=== PATIENT | female | born 2000 | race African-American/Black ===

== ENCOUNTER 2023-03-12 13:01 | Observation (INO) | payer MEDICAID ==
[~2023-03-12] VITALS: Ht 157.5 cm; Wt 99.8 kg
[2023-03-12] MEDS ORDERED: ONDANSETRON HCL 4MG/2ML INJ IV PRN ×2 (13:45→14:30)
[2023-03-12] MEDS: LACTATED RINGERS 1,000 ML IV SCH ×2 (15:45→17:25)
[2023-03-12 16:41] LABS: BASOPHILS % 0.3 % (0.0-2.0); CHLORIDE 109 mEq/L (98-107); EOSINOPHILS % 0.5 % (0.0-5.0); HEMATOCRIT. 37.4 % (36.0-48.0); HEMOGLOBIN. 12.7 g/dL (12.0-16.0); LYMPHOCYTES % 17.2 % (20.0-50.0); MEAN CORPUSCULAR HEMOGLOBIN 31.6 pg (28.0-32.0); MEAN CORPUSCULAR VOLUME 92.9 fL (81.0-99.0); MEAN PLATELET VOLUME 9.9 fl (7.4-10.4); MONOCYTES % 9.7 % (2.0-8.0); NEUTROPHILS % 72.3 % (40.0-76.0); PLATELET 284 x1000/uL (130-400); RED BLOOD CELL COUNT 4.03 mill/uL (4.2-5.4); RED CELL DISTRIBUTION WIDTH 13.2 % (11.6-14.6)
[2023-03-12 17:13] LABS: CLARITY URINE CLEAR (CLEAR); COLOR URINE YELLOW (YELLOW); KETONES URINE NEGATIVE (NEGATIVE); LEUKOCYTE ESTERASE URINE 2+ (NEGATIVE); NITRITE URINE NEGATIVE (NEGATIVE); OCCULT BLOOD URINE NEGATIVE (NEGATIVE); PH URINE 7.5 (4.5-8.0); PROTEIN URINE NEGATIVE (NEGATIVE)
[2023-03-12] MEDS ORDERED: LEVE1000 MT (19:09)
[2023-03-12] MEDS ORDERED: PNV1TABL50 MT (19:11)
== END 2023-03-12 19:52 | disposition home or self-care (01) ==
LOC: 8 EST LDRP 13:01
PROVIDERS: ADMIT Obstetrics & Gynecology; ATTEND Obstetrics & Gynecology
DX: O99.891 Other specified diseases and conditions complicating pregnancy (principal); M54.50 Low back pain, unspecified; R10.9 Unspecified abdominal pain; Z3A.36 36 weeks gestation of pregnancy
CPT/HCPCS: 36415; 59025; 76805; 76818; 80053; 81003; 85025; 96361; 96374; G0378; J2405; 96360; 99281; G0379

== ENCOUNTER 2023-03-23 19:21 | Inpatient (IN) | payer MEDICAID ==
[~2023-03-23] VITALS: Ht 157.5 cm; Wt 100.8 kg
[~2023-03-23 19:21] MED LIST: LEVE1000 MT; PNV1TABL50 MT
[2023-03-23] MEDS ORDERED: METHYLERGONOVINE MALEATE 0.2 MG/ML IM PRN (20:00)
[2023-03-23] MEDS ORDERED: MISOPROSTOL 100MCG TABLET VG SCH (20:00)
[2023-03-23] MEDS ORDERED: CARBOPROST TROMETHAMINE 250 MCG/ML AMPUL IM PRN (20:00)
[2023-03-23] MEDS ORDERED: NALOXONE HCL 0.4 MG/ML 1ML VIAL IM PRN (20:00)
[2023-03-23] MEDS ORDERED: LIDOCAINE HCL 1% 20ML VIAL (Pyxis) INJ INFIL SCH (20:00)
[2023-03-23] MEDS ORDERED: LORAZEPAM 2MG/ML CPJ IV NR (20:15)
[2023-03-23 20:45] LABS: BASOPHILS % 0.4 % (0.0-2.0); HEMATOCRIT. 38.1 % (36.0-48.0); HEMOGLOBIN. 12.8 g/dL (12.0-16.0); LYMPHOCYTES % 7.3 % (20.0-50.0); MEAN CORPUSCULAR HEMOGLOBIN 31.4 pg (28.0-32.0); MEAN CORPUSCULAR VOLUME 93.7 fL (81.0-99.0); MEAN PLATELET VOLUME 9.5 fl (7.4-10.4); MONOCYTES % 4.9 % (2.0-8.0); NEUTROPHILS % 87.4 % (40.0-76.0); PLATELET 349 x1000/uL (130-400); RED BLOOD CELL COUNT 4.07 mill/uL (4.2-5.4); RED CELL DISTRIBUTION WIDTH 13.4 % (11.6-14.6)
[2023-03-23] MEDS: LACTATED RINGERS 1,000 ML IV SCH (21:16)
[2023-03-23] MEDS: LEVETIRACETAM 1,000 MG in SODIUM CHLORIDE 0.9% 100 ML IV SCH (21:17)
[2023-03-23 21:51] LABS: CHLORIDE 109 mEq/L (98-107)
[2023-03-23 22:00] LABS: CREATINE KINASE 172 IU/L (26-192)
[2023-03-23 22:25] LABS: CLARITY URINE CLEAR (CLEAR); COLOR URINE DARK YELLOW (YELLOW); KETONES URINE 1+ (NEGATIVE); LEUKOCYTE ESTERASE URINE TRACE (NEGATIVE); NITRITE URINE NEGATIVE (NEGATIVE); OCCULT BLOOD URINE 1+ (NEGATIVE); PH URINE 5.5 (4.5-8.0); PROTEIN URINE 1+ (NEGATIVE); SPECIFIC GRAVITY URINE 1.014 (1.005-1.030)
[2023-03-23 22:38] LABS: *AMPHETAMINES SCREEN URINE NEGATIVE (NEGATIVE); *BARBITURATES SCREEN URINE NEGATIVE (NEGATIVE); *BENZODIAZEPINES SCREEN URINE NEGATIVE (NEGATIVE); *COCAINE SCREEN URINE NEGATIVE (NEGATIVE); METHADONE URINE SCREEN NEGATIVE (NEGATIVE); OPIATES URINE SCREEN NEGATIVE (NEGATIVE); PHENCYCLIDINE URINE SCREEN NEGATIVE (NEGATIVE)
[2023-03-23 22:42] LABS: CANNABINOID URINE SCREEN PRESUMTIVE POSITIVE (NEGATIVE)
[2023-03-24] MEDS: LACTATED RINGERS 1,000 ML IV SCH ×2 (00:48→10:45)
[2023-03-24] MEDS: LEVETIRACETAM 1,000 MG in SODIUM CHLORIDE 0.9% 100 ML IV SCH (09:01)
[2023-03-24] MEDS: LEVETIRACETAM 500MG TABLET PO SCH (21:02)
[2023-03-25] MEDS: LEVETIRACETAM 500MG TABLET PO SCH (08:56)
== END 2023-03-25 19:20 | disposition home or self-care (01) | DRG 566 ==
LOC: ER 19:21 → 8 EST LDRP 19:31 → OBSVTOIN 19:31 → 8 EST LDRP 20:35
PROVIDERS: ADMIT Obstetrics & Gynecology; ATTEND Obstetrics & Gynecology
DX: O99.353 Diseases of the nervous system complicating pregnancy, third trimester (principal); G40.909 Epilepsy, unspecified, not intractable, without status epilepticus; Z3A.34 34 weeks gestation of pregnancy; O36.5930 Maternal care for other known or suspected poor fetal growth, third trimester, not applicable or unspecified
CPT/HCPCS: 36415; 76805; 76818; 80048; 80305; 80349; 81003; 82542; 82550; 82962; 85025; 86592; 86703; 86850; 86900; 87340; 99281; 99285; G0378; J1953; J2060; J7050; J7120

== ENCOUNTER 2023-08-21 14:48 | Emergency (ER) | payer MEDICAID ==
[~2023-08-21] VITALS: Ht 170.2 cm; Wt 127.0 kg
[2023-08-21 14:52] VITALS: O2SAT 99
[2023-08-21] MEDS ORDERED: SODIUM CHLORIDE 0.9% 1,000 ML IV ONE (15:15)
[2023-08-21 15:27] LABS: BASOPHILS % 0.1 % (0.0-2.0); EOSINOPHILS % 0.3 % (0.0-5.0); HEMATOCRIT. 37.9 % (36.0-48.0); HEMOGLOBIN. 12.1 g/dL (12.0-16.0); LYMPHOCYTES % 8.6 % (20.0-50.0); MEAN CORPUSCULAR HGB CONC 31.9 g/dL (31.0-37.0); MEAN CORPUSCULAR VOLUME 84.7 fL (81.0-99.0); MEAN PLATELET VOLUME 7.8 fl (7.4-10.4); MONOCYTES % 6.2 % (2.0-8.0); NEUTROPHILS % 84.8 % (40.0-76.0); PLATELET 516 x1000/uL (130-400); RED BLOOD CELL COUNT 4.47 mill/uL (4.2-5.4); RED CELL DISTRIBUTION WIDTH 14.6 % (11.6-14.6); WHITE BLOOD COUNT 12.3 x1000/uL (4.5-11.0)
[2023-08-21 15:35] LABS: INDEX HEMOLYSI 1 (1-3); INDEX ICTERIC 1 (1-4); INDEX LIPEMIC 1 (1-3)
[2023-08-21 15:51] LABS: ALANINE AMINOTRANSFERASE 16 IU/L (13-61); ASPARTATE AMINOTRANSFERASE 15 IU/L (15-37); BILIRUBIN TOTAL 0.5 mg/dL (0.1-1.0); CALCIUM 8.2 mg/dL (8.5-10.1); CARBON DIOXIDE 23 mEq/L (21-32); CREATINE KINASE 285 IU/L (26-192); CREATININE 0.9 mg/dL (0.6-1.3); GLUCOSE 122 mg/dL (70-105); PROTEIN TOTAL 7.5 g/dL (6.0-8.3); UREA NITROGEN BLOOD 5 mg/dL (7-21)
[2023-08-21 15:55] LABS: HCG SCREEN NEGATIVE
[2023-08-21 15:58] LABS: CHLORIDE 109 mEq/L (98-107); POTASSIUM 3.9 mEq/L (3.5-5.1); SODIUM 139 mEq/L (136-145)
[2023-08-21] MEDS ORDERED: LEVETIRACETAM 4,500 MG in SODIUM CHLORIDE 0.9% 100 ML IV NR (16:00)
[2023-08-21 19:18] VITALS: TEMP 98
[2023-08-21 21:38] VITALS: BP 135/67; PULSE 89; RESP 21
== END 2023-08-21 21:47 | disposition left against medical advice (07) ==
LOC: ER 14:48 → CANBEDREQ 19:35 → ER 21:47
DX: G40.901 Epilepsy, unspecified, not intractable, with status epilepticus (principal)
CPT/HCPCS: 80053; 82550; 84703; 85025; 36415; 93005; 96365; 99284; J1953; J7050; J7030; Z7610 ×4; A4315

== ENCOUNTER 2024-02-08 21:39 | Emergency (ER) | payer MEDICAID ==
[~2024-02-08] VITALS: Ht 160 cm; Wt 109.0 kg
[2024-02-08 22:20] VITALS: BP 140/96; PULSE 84; RESP 18; TEMP 98; O2SAT 100
[2024-02-09] MEDS ORDERED: OLOP5DRO25 EACHEYE (00:45)
[2024-02-09] MEDS ORDERED: CETI10CA2 MT (00:45)
[2024-02-09] MEDS ORDERED: CLOB15CR4 TP (00:45)
[2024-02-09] MEDS: TETRACAINE 0.5% OPHTH DROPS 4ML EACHEYE ONE (00:51)
[2024-02-09] MEDS: FLUORESCEIN SODIUM 1MG/STRIP EACHEYE ONE (00:51)
== END 2024-02-09 01:03 | disposition home or self-care (01) ==
LOC: ER 22:03
DX: H10.13 Acute atopic conjunctivitis, bilateral (principal); L30.9 Dermatitis, unspecified; F19.90 Other psychoactive substance use, unspecified, uncomplicated; Z91.018 Allergy to other foods
CPT/HCPCS: 99283

== ENCOUNTER 2024-09-16 09:54 | Inpatient (IN) | payer MEDICAID ==
[~2024-09-16] VITALS: Ht 170.2 cm; Wt 86.6 kg
[~2024-09-16 09:54] MED LIST changes: +CETI10CA2 MT; +CLOB15CR4 TP; +OLOP5DRO25 EACHEYE
[2024-09-16 10:06] VITALS: O2SAT 100
[2024-09-16] MEDS: LORAZEPAM 2MG/ML INJ ONE (10:28)
[2024-09-16 10:51] LABS: HEMATOCRIT. 33.1 % (36.0-48.0); HEMOGLOBIN. 10.1 g/dL (12.0-16.0); MEAN CORPUSCULAR HEMOGLOBIN 26.4 pg (28.0-32.0); MEAN CORPUSCULAR HGB CONC 30.7 g/dL (31.0-37.0); MEAN CORPUSCULAR VOLUME 86.3 fL (81.0-99.0); MEAN PLATELET VOLUME 8.1 fl (7.4-10.4); PLATELET 355 x1000/uL (130-400); RED BLOOD CELL COUNT 3.84 mill/uL (4.2-5.4); RED CELL DISTRIBUTION WIDTH 18.9 % (11.6-14.6); WHITE BLOOD COUNT 9.1 x1000/uL (4.5-11.0)
[2024-09-16 10:59] LABS: INR 0.9; PROTHROMBIN TIME 10.5 sec (9.6-11.0)
[2024-09-16 11:00] LABS: CHLORIDE 109 mEq/L (98-107); POTASSIUM 4.3 mEq/L (3.5-5.1); SODIUM 134 mEq/L (136-145)
[2024-09-16 11:01] LABS: CALCIUM 8.8 mg/dL (8.7-10.4); CARBON DIOXIDE 14 mEq/L (21-32)
[2024-09-16 11:05] LABS: DIFFERENTIAL COMMENT 1
[2024-09-16 11:06] LABS: CREATININE 0.7 mg/dL (0.6-1.0); GLUCOSE 87 mg/dL (70-105); TROPONIN I HIGH SENSITIVITY 4 ng/L (3.0-34)
[2024-09-16 11:08] LABS: ALANINE AMINOTRANSFERASE 15 IU/L (10-49); ALBUMIN 3.8 g/dL (3.2-4.8); ASPARTATE AMINOTRANSFERASE 20 IU/L (<34); BILIRUBIN TOTAL 0.3 mg/dL (0.1-1.0); PROTEIN TOTAL 7.3 g/dL (6.0-8.3)
[2024-09-16 11:09] LABS: THYROID STIMULATING HORMONE 1.62 uIU/mL (0.55-4.78)
[2024-09-16 11:14] LABS: BILIRUBIN DIRECT < 0.1 mg/dL (<=3.0); UREA NITROGEN BLOOD < 5 mg/dL (9-23)
[2024-09-16 11:15] LABS: ETHANOL BLOOD < 10 mg/dL (<10)
[2024-09-16 11:47] LABS: HCG SCREEN POSITIVE
[2024-09-16] MEDS: LORAZEPAM 2MG/ML INJ IV ONE (12:55)
[2024-09-16 13:31] LABS: PLATELET ESTIMATE NORMAL
[2024-09-16 15:00] VITALS: BP 132/83; PULSE 95; RESP 18; TEMP 36.61404; O2SAT 98
[2024-09-16] MEDS ORDERED: ZOLPIDEM TARTRATE 5MG TABLET PO PRN (15:15)
[2024-09-16] MEDS ORDERED: CLONIDINE 0.1MG TABLET PO PRN (15:15)
[2024-09-16] MEDS ORDERED: MAGNESIUM/ALUMINUM HYDROXIDE/SIMETHICONE 30ML UDC PO PRN (15:15)
[2024-09-16] MEDS ORDERED: ONDANSETRON HCL 4MG/2ML INJ IV PRN (15:15)
[2024-09-16] MEDS ORDERED: DOCUSATE SODIUM 100MG CAPSULE PO PRN (15:15)
[2024-09-16] MEDS ORDERED: IPRATROPIUM/ALBUTEROL 0.5-3(2.5)MG/3ML NEB NEB PRN (15:15)
[2024-09-16] MEDS ORDERED: GUAIFENESIN 200MG/10ML SUGAR FREE UDC PO PRN (15:15)
[2024-09-16] MEDS ORDERED: NITROGLYCERIN 0.4MG TABLET SL SL PRN (15:15)
[2024-09-16] MEDS ORDERED: KETOROLAC 15MG/ML VIAL IV PRN (15:15)
[2024-09-16] MEDS ORDERED: ACETAMINOPHEN 325MG TABLET PO PRN ×2 (15:15)
[2024-09-16 15:30] VITALS: BP 132/83; PULSE 95; RESP 18; TEMP 36.6404
[2024-09-16] MEDS: LEVETIRACETAM 500MG PREMIX 100 ML IV SCH (16:05)
[2024-09-16 18:12] LABS: IRON 192 ug/dL (50-170)
[2024-09-16 18:15] LABS: TOTAL IRON BINDING CAPACITY 490 ug/dl (250-425)
[2024-09-16 18:17] LABS: FOLIC ACID (FOLATE) SERUM 10.71 ng/mL (>5.38); VITAMIN B12 SERUM 247 pg/mL (211-911)
[2024-09-16 18:18] LABS: T4 FREE 1.01 ng/dL (0.89-1.76)
[2024-09-16 20:00] VITALS: BP 140/81; PULSE 81; RESP 19; TEMP 36.00288; O2SAT 97
[2024-09-16] MEDS ORDERED: LEVETIRACETAM 500MG PREMIX 100 ML IV SCH (21:00)
[2024-09-16] MEDS: FAMOTIDINE 20MG TABLET PO SCH (21:15)
[2024-09-17] VITALS: BP 133/88; PULSE 92; RESP 18; TEMP 36.44736; O2SAT 98
[2024-09-17 04:00] VITALS: BP 121/64; PULSE 94; RESP 20; TEMP 36.33624; O2SAT 96
[2024-09-17 08:00] VITALS: BP 134/82; PULSE 89; RESP 18; TEMP 36.50292; O2SAT 99
== END 2024-09-17 10:44 | disposition left against medical advice (07) | DRG 566 ==
LOC: ER 10:01 → 8WST 12:34 → EDBEDREQ 12:37 → EDBEDREQTM 12:37
PROVIDERS: ADMIT Internal Medicine; ATTEND Internal Medicine
DX: O99.352 Diseases of the nervous system complicating pregnancy, second trimester (principal); E87.1 Hypo-osmolality and hyponatremia; O99.282 Endocrine, nutritional and metabolic diseases complicating pregnancy, second trimester; G40.909 Epilepsy, unspecified, not intractable, without status epilepticus; Z53.29 Procedure and treatment not carried out because of patient's decision for other reasons; Z79.899 Other long term (current) drug therapy; Z3A.15 15 weeks gestation of pregnancy
CPT/HCPCS: 36415; 71045; 76805; 80048; 80076; 80320; 82607; 82746; 82962; 83036; 83540; 83550; 84439; 84443; 84484; 84702; 84703; 85025; 93005; 93970; 99291; 99292; C1893; J1953; J2060; G0480

== ENCOUNTER 2025-05-14 21:09 | Emergency (ER) | payer MEDICAID ==
[~2025-05-14] VITALS: Ht 165.1 cm; Wt 66.0 kg
[2025-05-14 21:18] VITALS: O2SAT 98
[2025-05-15 00:27] LABS: BASOPHILS % 0.8 % (0.0-2.0); EOSINOPHILS % 0.9 % (0.0-5.0); HEMATOCRIT. 35.1 % (36.0-48.0); HEMOGLOBIN. 11.4 g/dL (12.0-16.0); LYMPHOCYTES % 34.5 % (20.0-50.0); MEAN CORPUSCULAR HGB CONC 32.4 g/dL (31.0-37.0); MEAN CORPUSCULAR VOLUME 86.2 fL (81.0-99.0); MEAN PLATELET VOLUME 8.2 fl (7.4-10.4); MONOCYTES % 9.9 % (2.0-8.0); NEUTROPHILS % 53.9 % (40.0-76.0); PLATELET 400 x1000/uL (130-400); RED BLOOD CELL COUNT 4.07 mill/uL (4.2-5.4); RED CELL DISTRIBUTION WIDTH 15.1 % (11.6-14.6); WHITE BLOOD COUNT 5.8 x1000/uL (4.5-11.0)
[2025-05-15 00:31] LABS: CHLORIDE 112 mEq/L (98-107); POTASSIUM 3.5 mEq/L (3.5-5.1); SODIUM 140 mEq/L (136-145)
[2025-05-15 00:32] LABS: CALCIUM 9.2 mg/dL (8.7-10.4); CARBON DIOXIDE 22 mEq/L (21-32)
[2025-05-15 00:37] LABS: CREATININE 0.8 mg/dL (0.6-1.0); UREA NITROGEN BLOOD 9 mg/dL (9-23)
[2025-05-15 00:58] LABS: GLUCOSE 68 mg/dL (70-105)
[2025-05-15 01:00] VITALS: BP 156/105; PULSE 83; RESP 20; O2SAT 99
== END 2025-05-15 01:10 ==
LOC: ER 21:09
DX: R56.9 Unspecified convulsions (principal); F17.200 Nicotine dependence, unspecified, uncomplicated; F12.90 Cannabis use, unspecified, uncomplicated; I49.1 Atrial premature depolarization; Z79.899 Other long term (current) drug therapy
CPT/HCPCS: 36415; 80048; 85025; 93005; 99284